=== PATIENT | male | born 1975 | race Caucasian/White ===

== ENCOUNTER 2016-12-18 14:18 | Emergency (ER) | payer OTHER, SELFPAY ==
[~2016-12-18] VITALS: Ht 188 cm; Wt 101.0 kg
[2016-12-18] MEDS ORDERED: ONDANSETRON 2MG/ML, 2ML IVPush ONE ×2 (15:00→17:00)
[2016-12-18] MEDS ORDERED: SODIUM CHLORIDE FLUSH 10ML SYR IVF ONE (15:00)
[2016-12-18] MEDS ORDERED: FAMOTIDINE 20 MG/2 ML IVP ONE (15:00)
[2016-12-18] MEDS ORDERED: SODIUM CHLORIDE 0.9% 1,000ML IVBOLUS ONE ×2 (15:00→17:00)
[2016-12-18 15:08] LABS: HEMATOCRIT 51.5 % (39.2-51.8); HEMOGLOBIN 17.6 g/dL (13.7-18.0); WHITE BLOOD COUNT 8.6 x10^3/uL (3.4-10)
[2016-12-18] MEDS ORDERED: ONDANSETRON 2MG/ML, 2ML ONE ×2 (15:09→16:56)
[2016-12-18] MEDS ORDERED: FAMOTIDINE 20 MG/2 ML ONE (15:09)
[2016-12-18 15:16] LABS: BLOOD UREA NITROGEN 17 mg/dL (7-18)
[2016-12-18] MEDS ORDERED: SERT100T PO (15:32)
[2016-12-18] MEDS ORDERED: HYDROmorphone 1 MG/ML, 1ML ONE (16:55)
[2016-12-18] MEDS ORDERED: HYDROmorphone 1 MG/ML, 1ML IVPush PRN (17:00)
[2016-12-18] MEDS ORDERED: PROMETHAZINE 25 MG/ML, 1ML IM ONE (18:00)
[2016-12-18] MEDS ORDERED: PROMETHAZINE 25 MG/ML, 1ML ONE (18:53)
[2016-12-18 19:42] VITALS: BP 154/92
== END 2016-12-18 19:45 | disposition home or self-care (01) ==
LOC: ED 15:14
DX: K52.9 Noninfective gastroenteritis and colitis, unspecified (principal); E86.0 Dehydration; E86.9 Volume depletion, unspecified
CPT/HCPCS: 36415; 80048; 81001; 82040; 85025; 96361; 96372; 96374; 96375; 96376; 99285; J1170; J2405; J2550; J7030; S0028

== ENCOUNTER 2017-03-29 15:12 | Emergency (ER) | payer OTHER ==
[~2017-03-29] VITALS: Ht 190.5 cm; Wt 98.3 kg
[~2017-03-29 15:12] MED LIST: SERT100T PO
[2017-03-29] MEDS ORDERED: ONDANSETRON 2MG/ML, 2ML ONE (16:05)
[2017-03-29] MEDS ORDERED: HTN (16:21)
[2017-03-29] MEDS ORDERED: SODIUM CHLORIDE 0.9% 1,000 ML IV ONE (16:22)
[2017-03-29] MEDS ORDERED: HYDROmorphone 2 MG/ML, 1ML ONE ×2 (16:25→17:03)
[2017-03-29] MEDS: HYDROmorphone 2 MG/ML, 1ML IVPush PRN ×2 (16:30→17:06)
[2017-03-29] MEDS ORDERED: SODIUM CHLORIDE FLUSH 10ML SYR IVF ONE (16:30)
[2017-03-29] MEDS ORDERED: ONDANSETRON 2MG/ML, 2ML IVPush ONE (16:30)
[2017-03-29] MEDS ORDERED: SODIUM CHLORIDE 0.9% 1,000ML IVBOLUS ONE (16:30)
[2017-03-29 16:46] LABS: BASOPHILS # (AUTO) 0.01 x10^3/uL (0-0.1); BASOPHILS % (AUTO) 0 % (0-1); EOSINOPHILS % (AUTO) 0 % (1-7); LYMPHOCYTES # (AUTO) 0.67 x10^3/uL (1-3.4); LYMPHOCYTES % (AUTO) 8 % (22-44); MD NO; MEAN CORPUSCULAR HEMOGLOBIN 30.5 pg (27.5-34.5); MEAN CORPUSCULAR HGB CONC 33.8 g/dL (33.2-36.2); MEAN CORPUSCULAR VOLUME 90.2 fL (81-97); MEAN PLATELET VOLUME 8.5 fL (7.4-10.4); MONOCYTES # (AUTO) 0.15 x10^3/uL (0.2-0.8); MONOCYTES % (AUTO) 2 % (2-9); NEUTROPHILS # (AUTO) 7.58 x10^3/uL (1.8-6.8); NEUTROPHILS % (AUTO) 90 % (42-75); PLATELET COUNT 167 x10^3/uL (130-400); RED BLOOD COUNT 5.36 x10^6/uL (4.38-5.82); RED CELL DISTRIBUTION WIDTH 12.7 % (9.4-14.8)
[2017-03-29 16:52] LABS: ALANINE AMINOTRANSFERASE 48 U/L (12-78); ALBUMIN 4.6 g/dL (3.4-5.0); ANION GAP 12 mmol/L (5-15); CALCIUM 9.2 mg/dL (8.5-10.1); CHLORIDE 108 mmol/L (98-107); CREATININE 1.17 mg/dL (0.7-1.3)
[2017-03-29 16:55] LABS: ALKALINE PHOSPHATASE 46 U/L (45-117); BILIRUBIN,TOTAL 0.8 mg/dL (0.2-1.0); TOTAL PROTEIN 8.4 g/dL (6.4-8.2)
[2017-03-29 18:01] LABS: CULTURE INDICATED? NO; MICROSCOPIC NOT IND
[2017-03-29] MEDS ORDERED: PROMETHAZINE 25 MG/ML, 1ML ONE (18:32)
[2017-03-29 18:57] VITALS: BP 140/80
[2017-03-29] MEDS ORDERED: PROMETHAZINE 25 MG/ML, 1ML IM ONE (19:00)
== END 2017-03-29 19:16 | disposition home or self-care (01) ==
LOC: ED 16:42
DX: K52.9 Noninfective gastroenteritis and colitis, unspecified (principal); E86.0 Dehydration; E86.9 Volume depletion, unspecified
CPT/HCPCS: 36415; 80053; 81003; 83690; 85025; 96361; 96372; 96374; 96375; 99284; J1170; J2405; J2550; J7030

== ENCOUNTER 2017-08-03 16:54 | Emergency (ER) | payer SELFPAY ==
[~2017-08-03] VITALS: Ht 190.5 cm; Wt 93.0 kg
[~2017-08-03 16:54] MED LIST changes: +HTN
[2017-08-03] MEDS ORDERED: ONDANSETRON ODT 4 MG PO ONE ×2 (18:00→19:00)
[2017-08-03] MEDS ORDERED: SODIUM CHLORIDE 0.9% 1,000ML IVBOLUS ONE (18:00)
[2017-08-03] MEDS ORDERED: FAMOTIDINE 20 MG/2 ML IVP ONE (18:00)
[2017-08-03] MEDS ORDERED: SODIUM CHLORIDE FLUSH 10ML SYR IVF ONE (18:00)
[2017-08-03] MEDS ORDERED: MORPHINE SULFATE 4 MG/ML, 1ML ONE ×2 (18:09→18:41)
[2017-08-03] MEDS ORDERED: ONDANSETRON ODT 4 MG ONE ×2 (18:09→18:41)
[2017-08-03] MEDS: MORPHINE SULFATE 4 MG/ML, 1ML IVPush PRN ×2 (18:15→18:43)
[2017-08-03 18:19] LABS: BASOPHILS % (AUTO) 0 % (0-1); EOSINOPHILS % (AUTO) 0 % (1-7); LYMPHOCYTES # (AUTO) 0.66 x10^3/uL (1-3.4); LYMPHOCYTES % (AUTO) 7 % (22-44); MD NO; MEAN CORPUSCULAR HEMOGLOBIN 30.9 pg (27.5-34.5); MEAN CORPUSCULAR HGB CONC 33.9 g/dL (33.2-36.2); MEAN CORPUSCULAR VOLUME 91.3 fL (81-97); MEAN PLATELET VOLUME 8.2 fL (7.4-10.4); MONOCYTES # (AUTO) 0.26 x10^3/uL (0.2-0.8); MONOCYTES % (AUTO) 3 % (2-9); NEUTROPHILS # (AUTO) 9.01 x10^3/uL (1.8-6.8); NEUTROPHILS % (AUTO) 91 % (42-75); PLATELET COUNT 176 x10^3/uL (130-400); RED BLOOD COUNT 5.22 x10^6/uL (4.38-5.82); RED CELL DISTRIBUTION WIDTH 12.7 % (9.4-14.8)
[2017-08-03 18:22] LABS: ALANINE AMINOTRANSFERASE 53 U/L (12-78); ALBUMIN 4.8 g/dL (3.4-5.0); ANION GAP 9 mmol/L (5-15); CALCIUM 9.5 mg/dL (8.5-10.1); CHLORIDE 105 mmol/L (98-107); CREATININE 1.17 mg/dL (0.7-1.3)
[2017-08-03 18:24] LABS: ALKALINE PHOSPHATASE 47 U/L (45-117); BILIRUBIN,TOTAL 0.9 mg/dL (0.2-1.0); TOTAL PROTEIN 8.6 g/dL (6.4-8.2)
[2017-08-03] MEDS ORDERED: ANXIETY MED (19:26)
[2017-08-03] MEDS ORDERED: ANTIDEPRESSANT (19:26)
[2017-08-03] MEDS ORDERED: PROMETHAZINE 25 MG/ML, 1ML IM ONE (19:30)
[2017-08-03] MEDS ORDERED: PROMETHAZINE 25 MG/ML, 1ML ONE (19:37)
[2017-08-03 21:13] VITALS: BP 144/81
== END 2017-08-03 21:18 | disposition home or self-care (01) ==
LOC: ED 18:50
DX: R10.84 Generalized abdominal pain (principal); F12.10 Cannabis abuse, uncomplicated; Z88.5 Allergy status to narcotic agent
CPT/HCPCS: 36415; 80053; 83690; 85025; 96361; 96372; 96374; 96375; 99284; J2550; J7030; Q0162; S0028

== ENCOUNTER 2018-02-18 17:40 | Emergency (ER) | payer SELFPAY ==
[~2018-02-18] VITALS: Ht 190.5 cm; Wt 96.1 kg
[~2018-02-18 17:40] MED LIST changes: +ANTIDEPRESSANT; +ANXIETY MED
[2018-02-18] MEDS ORDERED: ACETAMINOPHEN 500 MG TABLET ONE (18:38)
[2018-02-18] MEDS ORDERED: ONDANSETRON ODT 4 MG ONE (18:38)
[2018-02-18 18:57] LABS: BASOPHILS # (AUTO) 0.01 x10^3/uL (0-0.1); BASOPHILS % (AUTO) 0 % (0-1); EOSINOPHILS % (AUTO) 0 % (1-7); LYMPHOCYTES # (AUTO) 0.52 x10^3/uL (1-3.4); LYMPHOCYTES % (AUTO) 5 % (22-44); MD NO; MEAN CORPUSCULAR HEMOGLOBIN 31.2 pg (27.5-34.5); MEAN CORPUSCULAR HGB CONC 33.9 g/dL (33.2-36.2); MEAN CORPUSCULAR VOLUME 91.9 fL (81-97); MEAN PLATELET VOLUME 8.1 fL (7.4-10.4); MONOCYTES # (AUTO) 0.15 x10^3/uL (0.2-0.8); MONOCYTES % (AUTO) 2 % (2-9); NEUTROPHILS # (AUTO) 9.08 x10^3/uL (1.8-6.8); NEUTROPHILS % (AUTO) 93 % (42-75); PLATELET COUNT 203 x10^3/uL (130-400); RED BLOOD COUNT 5.27 x10^6/uL (4.38-5.82); RED CELL DISTRIBUTION WIDTH 13.5 % (9.4-14.8)
[2018-02-18] MEDS ORDERED: ONDANSETRON ODT 4 MG PO ONE (19:00)
[2018-02-18] MEDS ORDERED: ACETAMINOPHEN 500 MG TABLET PO ONE (19:00)
[2018-02-18 19:09] LABS: ALANINE AMINOTRANSFERASE 40 U/L (12-78); ALBUMIN 4.7 g/dL (3.4-5.0); ANION GAP 12 mmol/L (5-15); CALCIUM 9.4 mg/dL (8.5-10.1); CHLORIDE 107 mmol/L (98-107); CREATININE 1.21 mg/dL (0.7-1.3)
[2018-02-18 19:11] LABS: ALKALINE PHOSPHATASE 37 U/L (45-117); BILIRUBIN,TOTAL 0.6 mg/dL (0.2-1.0); TOTAL PROTEIN 8.3 g/dL (6.4-8.2)
[2018-02-18] MEDS ORDERED: SODIUM CHLORIDE FLUSH 10ML SYR IVF ONE (20:30)
[2018-02-18] MEDS ORDERED: SODIUM CHLORIDE 0.9% 1,000ML IVBOLUS ONE ×2 (20:30→21:30)
[2018-02-18] MEDS ORDERED: MORPHINE SULFATE 4 MG/ML, 1ML IVPush PRN (20:30)
[2018-02-18] MEDS ORDERED: MORPHINE SULFATE 4 MG/ML, 1ML ONE (20:31)
[2018-02-18 20:51] LABS: MICROSCOPIC NOT IND
[2018-02-18 20:56] LABS: CULTURE INDICATED? NO
[2018-02-18] MEDS ORDERED: PROMETHAZINE 25 MG/ML, 1ML ONE (21:23)
[2018-02-18 21:26] VITALS: BP 156/92
[2018-02-18] MEDS ORDERED: PROMETHAZINE 25 MG/ML, 1ML IM ONE (21:30)
== END 2018-02-18 22:29 | disposition home or self-care (01) ==
LOC: ED 20:56
DX: R19.7 Diarrhea, unspecified (principal); R11.2 Nausea with vomiting, unspecified; M79.18 Myalgia, other site; F12.10 Cannabis abuse, uncomplicated
CPT/HCPCS: 36415; 80053; 81003; 83690; 85025; 87081; 87880; 96361; 96372; 96374; 99283; J2550; J7030; Q0162

== ENCOUNTER 2018-08-29 06:30 | Inpatient (IN) | payer OTHER ==
[~2018-08-29] VITALS: Ht 190.5 cm; Wt 81.3 kg
--- NOTE | 2018-08-29 06:55 | NUR ---
PT REPORTS N/V, DIARRHEA, SOB SINCE 2 AM.
[2018-08-29] MEDS ORDERED: ONDANSETRON 2MG/ML, 2ML ONE (07:00)
[2018-08-29] MEDS ORDERED: LORazepam 2 MG/ML, 1ML IVPush ONE (07:00)
[2018-08-29] MEDS ORDERED: LORazepam 2 MG/ML, 1ML ONE (07:00)
[2018-08-29] MEDS ORDERED: ONDANSETRON 2MG/ML, 2ML IVPush ONE (07:00)
[2018-08-29] MEDS ORDERED: ONDANSETRON ODT 4 MG PO ONE (07:00)
[2018-08-29] MEDS ORDERED: SODIUM CHLORIDE FLUSH 10ML SYR IVF ONE ×2 (07:00→08:30)
[2018-08-29 07:08] LABS: BASOPHILS # (AUTO) 0.02 x10^3/uL (0-0.1); BASOPHILS % (AUTO) 0 % (0-1); EOSINOPHILS # (AUTO) 0.12 x10^3/uL (0-0.4); EOSINOPHILS % (AUTO) 2 % (1-7); LYMPHOCYTES # (AUTO) 0.82 x10^3/uL (1-3.4); LYMPHOCYTES % (AUTO) 11 % (22-44); MD NO; MEAN CORPUSCULAR HEMOGLOBIN 30.1 pg (27.5-34.5); MEAN CORPUSCULAR HGB CONC 33.1 g/dL (33.2-36.2); MEAN PLATELET VOLUME 7.9 fL (7.4-10.4); MONOCYTES # (AUTO) 0.41 x10^3/uL (0.2-0.8); MONOCYTES % (AUTO) 5 % (2-9); NEUTROPHILS # (AUTO) 6.26 x10^3/uL (1.8-6.8); NEUTROPHILS % (AUTO) 82 % (42-75); PLATELET COUNT 167 x10^3/uL (130-400); RED BLOOD COUNT 5.38 x10^6/uL (4.38-5.82); RED CELL DISTRIBUTION WIDTH 13.7 % (9.4-14.8)
[2018-08-29 07:21] LABS: ALANINE AMINOTRANSFERASE 49 U/L (12-78); ALBUMIN 4.6 g/dL (3.4-5.0); ANION GAP 8 mmol/L (5-15); CALCIUM 9.5 mg/dL (8.5-10.1); CHLORIDE 109 mmol/L (98-107); CREATININE 1.21 mg/dL (0.7-1.3)
[2018-08-29 07:24] LABS: ALKALINE PHOSPHATASE 39 U/L (45-117); BILIRUBIN,TOTAL 0.8 mg/dL (0.2-1.0)
[2018-08-29] MEDS ORDERED: [UNRECOGNIZED DRUG - REMARK] (07:24)
[2018-08-29] MEDS ORDERED: FLUO40CA9 PO (07:24)
--- NOTE | 2018-08-29 07:52 | NUR ---
PT TO XRAY
[2018-08-29] MEDS ORDERED: NITROGLYCERIN OINT 2%, 1GM TP ONE ×2 (08:29→08:30)
[2018-08-29] MEDS ORDERED: SODIUM CHLORIDE 0.9% 1,000ML IVBOLUS ONE (08:30)
--- NOTE | 2018-08-29 08:42 | NUR ---
PT ANXIOUS, REPORTS NAUSEA IS NOT BETTER AT ALL SINCE MEDICATED. ER PA NOTIFIED. IVF STARTED. BP 178/108 BEFORE NITRO.
[2018-08-29] MEDS ORDERED: PROMETHAZINE 25 MG/ML, 1ML IM ONE (09:00)
[2018-08-29] MEDS ORDERED: PROMETHAZINE 25 MG/ML, 1ML ONE (09:11)
--- NOTE | 2018-08-29 09:27 | NUR ---
PT NAUSEA STILL NOT BETTER. MEDICATED PER EMAR. WILL CONTINUE TO REASSESS.
[2018-08-29] MEDS ORDERED: HALOPERIDOL 5 MG/ML IVPush ONE (09:30)
[2018-08-29 09:41] LABS: MICROSCOPIC AUTO
[2018-08-29 09:46] LABS: CULTURE INDICATED? NO
[2018-08-29] MEDS ORDERED: KETOROLAC 30 MG/1 ML IVPush ONE (10:00)
[2018-08-29] MEDS ORDERED: KETOROLAC 30 MG/1 ML ONE (10:01)
--- NOTE | 2018-08-29 10:26 | NUR ---
PT REPORTS LESS NAUSEA AND NO VOMITTING. PT REPORTS PAIN HAS IMPROVED TO 10/10 TO 9/10. PT STATES HE IS STILL UNABLE TO PROVIDE A STOOL SAMPLE.
--- NOTE | 2018-08-29 11:08 | NUR ---
PT STATES HE IS STILL VERY UNCOMFORTABLE AND THE NAUSEA AND VOMITTING PERSIST DESPITE THE MEDICATIONS. PT PALE AND DIAPHORETIC. TO BE ADMITTED.
--- NOTE | 2018-08-29 11:10 | NUR ---
ER PA IN TO PERFORM RECTAL EXAM SINCE PT HAS NOT BEEN ABLE TO PROVIDE STOOL SAMPLE.
--- NOTE | 2018-08-29 11:32 | NUR ---
REPORT GIVEN TO JOSHUA DUVAL ON 3NE
[2018-08-29 11:54] VITALS: BP 170/98
[2018-08-29] MEDS: D5%-0.45% NACL 1,000 ML IV SCH (13:27)
[2018-08-29] MEDS ORDERED: ONDANSETRON 2MG/ML, 2ML IVPush PRN (13:30)
[2018-08-29] MEDS ORDERED: POLYETHYLENE GLYCOL 17 GM PACKET PO PRN (13:30)
[2018-08-29] MEDS ORDERED: LABETALOL 5MG/ML, 20ML IVPush PRN (13:30)
[2018-08-29 13:53] VITALS: BP 173/110
[2018-08-29] MEDS: ONDANSETRON ODT 4 MG PO PRN ×2 (13:55→18:05)
[2018-08-29] MEDS: LABETALOL 5 MG/ML SYRINGE IVPush PRN ×2 (14:12→22:35)
[2018-08-29 14:21] LABS: FREE T4 (FREE THYROXINE) 1.06 ng/dL (0.76-1.46)
[2018-08-29 15:12] VITALS: BP 161/94
[2018-08-29] MEDS: ACETAMINOPHEN 325 MG TABLET PO PRN ×2 (15:52→21:15)
[2018-08-29 20:00] VITALS: BP 189/115
[2018-08-30] MEDS: ONDANSETRON ODT 4 MG PO PRN
[2018-08-30 00:07] VITALS: BP 164/90
[2018-08-30 03:40] VITALS: BP 184/97
[2018-08-30] MEDS: LABETALOL 5 MG/ML SYRINGE IVPush PRN (04:28)
[2018-08-30 05:35] VITALS: BP 167/92
[2018-08-30 05:42] LABS: BASOPHILS # (AUTO) 0.02 x10^3/uL (0-0.1); BASOPHILS % (AUTO) 0 % (0-1); EOSINOPHILS # (AUTO) 0.01 x10^3/uL (0-0.4); EOSINOPHILS % (AUTO) 0 % (1-7); LYMPHOCYTES # (AUTO) 0.85 x10^3/uL (1-3.4); LYMPHOCYTES % (AUTO) 9 % (22-44); MD NO; MEAN CORPUSCULAR HEMOGLOBIN 30.5 pg (27.5-34.5); MEAN CORPUSCULAR HGB CONC 33.1 g/dL (33.2-36.2); MEAN CORPUSCULAR VOLUME 92.1 fL (81-97); MEAN PLATELET VOLUME 8.1 fL (7.4-10.4); MONOCYTES # (AUTO) 0.56 x10^3/uL (0.2-0.8); MONOCYTES % (AUTO) 6 % (2-9); NEUTROPHILS # (AUTO) 7.75 x10^3/uL (1.8-6.8); NEUTROPHILS % (AUTO) 84 % (42-75); PLATELET COUNT 192 x10^3/uL (130-400); RED BLOOD COUNT 5.37 x10^6/uL (4.38-5.82); RED CELL DISTRIBUTION WIDTH 13.7 % (9.4-14.8)
[2018-08-30 05:53] LABS: ALANINE AMINOTRANSFERASE 42 U/L (12-78); ALBUMIN 4.2 g/dL (3.4-5.0); ANION GAP 7 mmol/L (5-15); CALCIUM 8.9 mg/dL (8.5-10.1); CHLORIDE 104 mmol/L (98-107)
[2018-08-30 06:04] LABS: ALKALINE PHOSPHATASE 39 U/L (45-117); BILIRUBIN,TOTAL 0.6 mg/dL (0.2-1.0); CREATININE 0.85 mg/dL (0.7-1.3); TOTAL PROTEIN 7.5 g/dL (6.4-8.2)
[2018-08-30] MEDS: D5%-0.45% NACL 1,000 ML IV SCH ×2 (07:30)
[2018-08-30 08:43] VITALS: BP 156/90
[2018-08-30] MEDS ORDERED: FLUOXETINE HCL 20 MG CAPSULE PO SCH (09:00)
[2018-08-30] MEDS ORDERED: AMLODIPINE 5 MG TABLET PO SCH (09:00)
[2018-08-30] MEDS ORDERED: SENNA/DOCUSATE TABLET PO SCH (09:00)
== END 2018-08-30 11:49 | disposition left against medical advice (07) | DRG 392 ==
LOC: ED 09:59 → EDIP 11:01 → 3NE 11:39
PROVIDERS: ADMIT Internal Medicine; ATTEND Internal Medicine
DX: R11.2 Nausea with vomiting, unspecified (principal); E86.0 Dehydration; F32.9 Major depressive disorder, single episode, unspecified; F41.1 Generalized anxiety disorder; I10 Essential (primary) hypertension; Z79.899 Other long term (current) drug therapy; F41.0 Panic disorder [episodic paroxysmal anxiety]; Z88.6 Allergy status to analgesic agent; Z53.21 Procedure and treatment not carried out due to patient leaving prior to being seen by health care provider
CPT/HCPCS: 36415; 74021; 80053; 81001; 83735; 84100; 84439; 84443; 85025; 96361; 96372; 96374; 96375; G0378; J1885; J2405; J2550; Q0162; J2060; J7030

== ENCOUNTER 2018-10-22 17:36 | Emergency (ER) | payer OTHER ==
[~2018-10-22] VITALS: Ht 190.5 cm; Wt 92.7 kg
[2018-10-22 20:06] VITALS: BP 179/108
== END 2018-10-22 20:10 | disposition home or self-care (01) ==
LOC: ED 18:34
DX: K52.9 Noninfective gastroenteritis and colitis, unspecified (principal); I10 Essential (primary) hypertension
CPT/HCPCS: 36415; 80053; 83690; 85025; 93005; 96361; 96372; 96374; 99284; J2270; J2550; J7030

== ENCOUNTER 2019-02-12 17:44 | Emergency (ER) | payer OTHER ==
[~2019-02-12] VITALS: Ht 190.5 cm; Wt 99.7 kg
[~2019-02-12 17:44] MED LIST changes: +FLUO40CA9 PO; +HYDR50TA13 PO; +[UNRECOGNIZED DRUG - REMARK]
[2019-02-12 18:21] LABS: BASOPHILS # (AUTO) 0.01 x10^3/uL (0-0.1); BASOPHILS % (AUTO) 0 % (0-1); EOSINOPHILS # (AUTO) 0.01 x10^3/uL (0-0.4); EOSINOPHILS % (AUTO) 0 % (1-7); LYMPHOCYTES # (AUTO) 0.58 x10^3/uL (1-3.4); LYMPHOCYTES % (AUTO) 5 % (22-44); MD NO; MEAN CORPUSCULAR HEMOGLOBIN 30.3 pg (27.5-34.5); MEAN CORPUSCULAR HGB CONC 33.2 g/dL (33.2-36.2); MEAN CORPUSCULAR VOLUME 91.4 fL (81-97); MEAN PLATELET VOLUME 7.5 fL (7.4-10.4); MONOCYTES # (AUTO) 0.21 x10^3/uL (0.2-0.8); MONOCYTES % (AUTO) 2 % (2-9); NEUTROPHILS # (AUTO) 10.33 x10^3/uL (1.8-6.8); NEUTROPHILS % (AUTO) 93 % (42-75); PLATELET COUNT 191 x10^3/uL (130-400); RED BLOOD COUNT 5.39 x10^6/uL (4.38-5.82); RED CELL DISTRIBUTION WIDTH 13.2 % (9.4-14.8)
[2019-02-12] MEDS ORDERED: ONDANSETRON 2MG/ML, 2ML ONE (18:25)
[2019-02-12] MEDS ORDERED: MORPHINE SULFATE 4 MG/ML, 1ML ONE (18:25)
[2019-02-12] MEDS ORDERED: PROMETHAZINE 25 MG/ML, 1ML ONE (18:25)
[2019-02-12] MEDS ORDERED: PROMETHAZINE 25 MG/ML, 1ML IM ONE (18:30)
[2019-02-12] MEDS ORDERED: MORPHINE SULFATE 4 MG/ML, 1ML IVPush PRN (18:30)
[2019-02-12] MEDS ORDERED: SODIUM CHLORIDE FLUSH 10ML SYR IVF ONE (18:30)
[2019-02-12] MEDS ORDERED: ONDANSETRON 2MG/ML, 2ML IVPush ONE (18:30)
[2019-02-12] MEDS ORDERED: SODIUM CHLORIDE 0.9% 1,000ML IVBOLUS ONE (18:30)
[2019-02-12 18:32] LABS: ALANINE AMINOTRANSFERASE 47 U/L (12-78); ALBUMIN 4.5 g/dL (3.4-5.0); ANION GAP 11 mmol/L (5-15); CALCIUM 9.3 mg/dL (8.5-10.1); CHLORIDE 103 mmol/L (98-107)
[2019-02-12 18:35] LABS: ALKALINE PHOSPHATASE 47 U/L (45-117); BILIRUBIN,TOTAL 0.6 mg/dL (0.2-1.0); CREATININE 1.37 mg/dL (0.7-1.3); TOTAL PROTEIN 8.4 g/dL (6.4-8.2)
--- NOTE | 2019-02-12 18:45 | NUR ---
PT REPORTS N/V ALL DAY HAS BEEN BENT OVER TUB ALL DAY AND NOW HIS LEGS HURT ALSO
[2019-02-12 18:58] VITALS: BP 179/103
--- NOTE | 2019-02-12 19:01 | NUR ---
UA COLLECTED AND SENT TO LAB. PT RESTING ON [facility], [place].
[2019-02-12 19:11] LABS: MICROSCOPIC AUTO
[2019-02-12 19:13] LABS: CULTURE INDICATED? NO
--- NOTE | 2019-02-12 19:16 | NUR ---
ALL RESULTS ARE BACK AT THIS TIME. CHART UP FOR RECHECK.
== END 2019-02-12 19:49 | disposition home or self-care (01) ==
LOC: ED 19:43
DX: K52.9 Noninfective gastroenteritis and colitis, unspecified (principal); I10 Essential (primary) hypertension; E86.0 Dehydration
CPT/HCPCS: 36415; 80053; 81001; 83690; 85025; 96372; 96374; 96375; 99283; J2270; J2405; J2550; J7030

== ENCOUNTER 2019-09-21 16:28 | Emergency (ER) | payer OTHER ==
[~2019-09-21] VITALS: Ht 190.5 cm; Wt 102.6 kg
[~2019-09-21 16:28] MED LIST changes: -HYDR50TA13 PO; +HYDR50TA99 PO
--- NOTE | 2019-09-21 16:56 | NUR ---
"I'M VOMITING AND I CAN'T KEEP ANYTHING DOWN FOR A DAY AND A HALF.". DENIES DIARRHEA. PT IN BED WITH CONT SPO2, BP Q 30 MIN, SIDE RAILS UP X2, CALL LIGHT IN REACH. PT HAS N/V
[2019-09-21] MEDS ORDERED: PROMETHAZINE 25 MG/ML, 1ML IM ONE (17:00)
[2019-09-21] MEDS ORDERED: FAMOTIDINE 20 MG/2 ML IV ONE (17:00)
[2019-09-21] MEDS ORDERED: HYDROmorphone 2 MG/ML, 1ML IVPush PRN (17:00)
[2019-09-21] MEDS ORDERED: SODIUM CHLORIDE FLUSH 10ML SYR IVF ONE (17:00)
[2019-09-21] MEDS ORDERED: SODIUM CHLORIDE 0.9% 1,000ML IVBOLUS ONE (17:00)
[2019-09-21] MEDS ORDERED: PROMETHAZINE 25 MG/ML, 1ML ONE (17:01)
[2019-09-21] MEDS ORDERED: HYDROmorphone 1 MG/ML, 1ML INJ ONE (17:01)
[2019-09-21] MEDS ORDERED: FAMOTIDINE 20 MG/2 ML ONE (17:01)
[2019-09-21 17:05] LABS: BASOPHILS # (AUTO) 0.03 x10^3/uL (0-0.1); BASOPHILS % (AUTO) 0 % (0-1); EOSINOPHILS % (AUTO) 0 % (1-7); LYMPHOCYTES # (AUTO) 0.82 x10^3/uL (1-3.4); LYMPHOCYTES % (AUTO) 7 % (22-44); MD NO; MEAN CORPUSCULAR HEMOGLOBIN 30.8 pg (27.5-34.5); MEAN CORPUSCULAR HGB CONC 33.3 g/dL (33.2-36.2); MEAN CORPUSCULAR VOLUME 92.3 fL (81-97); MONOCYTES # (AUTO) 0.29 x10^3/uL (0.2-0.8); MONOCYTES % (AUTO) 2 % (2-9); NEUTROPHILS # (AUTO) 11.16 x10^3/uL (1.8-6.8); NEUTROPHILS % (AUTO) 91 % (42-75); PLATELET COUNT 191 x10^3/uL (130-400); RED BLOOD COUNT 5.41 x10^6/uL (4.38-5.82); RED CELL DISTRIBUTION WIDTH 13.8 % (9.4-14.8)
[2019-09-21 17:14] LABS: ALANINE AMINOTRANSFERASE 51 U/L (12-78); ALBUMIN 4.7 g/dL (3.4-5.0); ANION GAP 11 mmol/L (5-15); CALCIUM 9.3 mg/dL (8.5-10.1); CHLORIDE 105 mmol/L (98-107); CREATININE 1.38 mg/dL (0.7-1.3)
[2019-09-21 17:17] LABS: ALKALINE PHOSPHATASE 45 U/L (45-117); BILIRUBIN,TOTAL 0.7 mg/dL (0.2-1.0); TOTAL PROTEIN 8.8 g/dL (6.4-8.2)
--- NOTE | 2019-09-21 17:32 | NUR ---
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 NO MORE N/V. NOTIFIED
[2019-09-21 17:40] LABS: ACETONE, SERUM Negative (Negative)
[2019-09-21] MEDS ORDERED: MAALOX/HYOSCYAMINE/LIDOCAINE 45 ML BTL ONE (17:59)
[2019-09-21] MEDS ORDERED: MAALOX/HYOSCYAMINE/LIDOCAINE 45 ML BTL PO ONE (18:00)
[2019-09-21 18:20] VITALS: BP 124/74
== END 2019-09-21 18:22 | disposition home or self-care (01) ==
LOC: ED 17:35
DX: R11.2 Nausea with vomiting, unspecified (principal); E86.0 Dehydration; R10.84 Generalized abdominal pain; I10 Essential (primary) hypertension
CPT/HCPCS: 36415; 80053; 82010; 83690; 83735; 85025; 96361; 96372; 96374; 96375; 99284; J1170; J2550; J3490; J7030

== ENCOUNTER 2019-09-23 06:20 | Inpatient (IN) | payer OTHER ==
[~2019-09-23] VITALS: Ht 188 cm; Wt 107.2 kg
[2019-09-23] VITALS (12 sets, daily range): BP systolic 116–209; BP diastolic 74–126
--- NOTE | 2019-09-23 06:47 | NUR ---
Report to Toya LEWIS to assume care
[2019-09-23] MEDS ORDERED: SODIUM CHLORIDE 0.9% 1,000ML IVBOLUS ONE (07:00)
[2019-09-23] MEDS ORDERED: PROMETHAZINE 25 MG/ML, 1ML IM ONE (07:00)
[2019-09-23] MEDS ORDERED: SODIUM CHLORIDE FLUSH 10ML SYR IVF ONE (07:00)
[2019-09-23] MEDS ORDERED: MORPHINE SULFATE 4 MG/ML, 1ML IVPush PRN (07:00)
[2019-09-23] MEDS ORDERED: MORPHINE SULFATE 4 MG/ML, 1ML ONE (07:03)
[2019-09-23] MEDS ORDERED: PROMETHAZINE 25 MG/ML, 1ML ONE (07:03)
[2019-09-23 07:14] LABS: BASOPHILS % (AUTO) 0 % (0-1); EOSINOPHILS # (AUTO) 0.16 x10^3/uL (0-0.4); EOSINOPHILS % (AUTO) 2 % (1-7); LYMPHOCYTES # (AUTO) 0.83 x10^3/uL (1-3.4); LYMPHOCYTES % (AUTO) 11 % (22-44); MD NO; MEAN CORPUSCULAR HEMOGLOBIN 30.7 pg (27.5-34.5); MEAN CORPUSCULAR HGB CONC 33.4 g/dL (33.2-36.2); MEAN PLATELET VOLUME 7.6 fL (7.4-10.4); MONOCYTES # (AUTO) 0.33 x10^3/uL (0.2-0.8); MONOCYTES % (AUTO) 4 % (2-9); NEUTROPHILS # (AUTO) 6.42 x10^3/uL (1.8-6.8); NEUTROPHILS % (AUTO) 83 % (42-75); PLATELET COUNT 173 x10^3/uL (130-400); RED BLOOD COUNT 5.28 x10^6/uL (4.38-5.82); RED CELL DISTRIBUTION WIDTH 13.1 % (9.4-14.8)
[2019-09-23 07:25] LABS: ALANINE AMINOTRANSFERASE 47 U/L (12-78); ALBUMIN 4.1 g/dL (3.4-5.0); ANION GAP 7 mmol/L (5-15); CALCIUM 8.6 mg/dL (8.5-10.1); CHLORIDE 112 mmol/L (98-107); CREATININE 1.26 mg/dL (0.7-1.3)
[2019-09-23 07:29] LABS: ALKALINE PHOSPHATASE 37 U/L (45-117); BILIRUBIN,TOTAL 0.7 mg/dL (0.2-1.0); TOTAL PROTEIN 7.4 g/dL (6.4-8.2); TROPONIN I < 0.015 ng/mL (0.000-0.045)
--- NOTE | 2019-09-23 07:34 | NUR ---
PT to imaging
[2019-09-23] MEDS ORDERED: LORazepam 2 MG/ML, 1ML IVPush ONE (08:00)
[2019-09-23] MEDS ORDERED: LORazepam 2 MG/ML, 1ML ONE (08:14)
--- NOTE | 2019-09-23 08:17 | NUR ---
pt to ct
[2019-09-23 08:27] LABS: MICROSCOPIC NOT IND
[2019-09-23] MEDS ORDERED: OMNIPAQUE 350 MG/ML, 100ML BOTTLE ONE (08:46)
--- NOTE | 2019-09-23 08:52 | NUR ---
pt back from imaging, resting in bed.
[2019-09-23] MEDS ORDERED: hydrALAzine 20 MG/ML, 1ML ONE (09:15)
--- NOTE | 2019-09-23 09:15 | NUR ---
ERMD AT BEDSIDE TO DISCUSS POC
[2019-09-23] MEDS ORDERED: hydrALAzine 20 MG/ML, 1ML IV ONE (09:30)
[2019-09-23] MEDS ORDERED: BENZOCAINE 20% SPRAY 0.5ML ONE (09:51)
--- NOTE | 2019-09-23 09:59 | NUR ---
PT PULLED OUT/DCD NG TUBE, NOW REFUSIGN REPLACEMENT.
[2019-09-23] MEDS ORDERED: PANTOPRAZOLE 80 MG in SODIUM CHLORIDE 0.9% 50 ML IV ONE (10:00)
[2019-09-23] MEDS ORDERED: PANTOPRAZOLE 80 MG in SODIUM CHLORIDE 0.9% 100 ML IV SCH (10:00)
--- NOTE | 2019-09-23 10:00 | NUR ---
REPORT CALLED TO JOVANNA LEWIS
[2019-09-23] MEDS ORDERED: DOCUSATE 100 MG CAPSULE PO PRN (11:30)
[2019-09-23] MEDS ORDERED: POLYETHYLENE GLYCOL 17 GM PACKET PO PRN (11:30)
[2019-09-23] MEDS ORDERED: PROMETHAZINE 25 MG/ML, 1ML IM PRN (11:30)
[2019-09-23] MEDS ORDERED: ONDANSETRON ODT 4 MG PO PRN (11:30)
[2019-09-23] MEDS ORDERED: LABETALOL 5MG/ML, 20ML IVPush PRN (11:30)
[2019-09-23] MEDS ORDERED: HALOPERIDOL 5 MG/ML IVPush PRN (11:30)
[2019-09-23] MEDS ORDERED: ACETAMINOPHEN 325 MG TABLET PO PRN (11:30)
[2019-09-23] MEDS ORDERED: ONDANSETRON 2MG/ML, 2ML IVPush PRN (11:30)
[2019-09-23] MEDS ORDERED: FAMOTIDINE 20 MG/2 ML IVPush SCH (11:30)
[2019-09-23] MEDS ORDERED: BISACODYL 10 MG SUPP PR PRN (11:30)
[2019-09-23] MEDS ORDERED: hydrALAzine 20 MG/ML, 1ML IVPush PRN ×2 (11:30→15:30)
[2019-09-23] MEDS: METOPROLOL TARTRATE 25 MG TAB PO SCH ×2 (11:59→18:16)
[2019-09-23] MEDS ORDERED: ENOXAPARIN 40 MG/0.4 ML SQ SCH (12:00)
[2019-09-23] MEDS: KETOROLAC 30 MG/1 ML IV PRN ×2 (12:16→19:49)
[2019-09-23] MEDS: NS + 20MEQ KCL 1,000 ML IV SCH (12:32)
[2019-09-23] MEDS: ENALAPRILAT 1.25 MG/ML, 2ML IVPush PRN ×2 (12:35→13:11)
[2019-09-23] MEDS ORDERED: NITROGLYCERIN OINT 2%, 1GM TP PRN (15:30)
[2019-09-23 15:57] LABS: AMPHETAMINE SCREEN, URINE Negative (Negative); BARBITURATE SCREEN, URINE Negative (Negative); BENZODIAZEPINE SCREEN, URINE Negative (Negative); CANNABINOID SCREEN, URINE Positive (Negative); COCAINE SCREEN, URINE Negative (Negative); METHADONE SCREEN, URINE Negative (Negative); OPIATE SCREEN, URINE Positive (Negative)
[2019-09-23] MEDS: LISINOPRIL 20 MG TABLET PO SCH ×2 (16:13→19:48)
[2019-09-24 00:58] VITALS: BP 127/74
[2019-09-24] MEDS: NS + 20MEQ KCL 1,000 ML IV SCH (02:43)
[2019-09-24 05:00] LABS: BASOPHILS # (AUTO) 0.03 x10^3/uL (0-0.1); BASOPHILS % (AUTO) 0 % (0-1); EOSINOPHILS % (AUTO) 1 % (1-7); LYMPHOCYTES # (AUTO) 1.27 x10^3/uL (1-3.4); LYMPHOCYTES % (AUTO) 14 % (22-44); MD NO; MEAN CORPUSCULAR HEMOGLOBIN 30.7 pg (27.5-34.5); MEAN CORPUSCULAR HGB CONC 32.9 g/dL (33.2-36.2); MEAN CORPUSCULAR VOLUME 93.5 fL (81-97); MEAN PLATELET VOLUME 8.2 fL (7.4-10.4); MONOCYTES # (AUTO) 0.84 x10^3/uL (0.2-0.8); MONOCYTES % (AUTO) 9 % (2-9); NEUTROPHILS # (AUTO) 7.13 x10^3/uL (1.8-6.8); NEUTROPHILS % (AUTO) 76 % (42-75); PLATELET COUNT 169 x10^3/uL (130-400); RED BLOOD COUNT 5.09 x10^6/uL (4.38-5.82); RED CELL DISTRIBUTION WIDTH 14.2 % (9.4-14.8)
[2019-09-24 05:07] LABS: ANION GAP 7 mmol/L (5-15); CALCIUM 8.2 mg/dL (8.5-10.1); CHLORIDE 107 mmol/L (98-107)
[2019-09-24 05:11] LABS: CREATININE 1.13 mg/dL (0.7-1.3)
[2019-09-24 05:47] VITALS: BP 139/73
[2019-09-24] MEDS: METOPROLOL TARTRATE 25 MG TAB PO SCH ×2 (05:48→17:23)
[2019-09-24 07:26] VITALS: BP 136/78
[2019-09-24] MEDS ORDERED: POTASSIUM PHOSPHATE 44 MEQ in SODIUM CHLORIDE 0.9% 500 ML IV ONE (08:00)
[2019-09-24] MEDS: LISINOPRIL 20 MG TABLET PO SCH ×2 (08:44→21:53)
[2019-09-24] MEDS: PANTOPRAZOLE 40 MG IV IVPush SCH (08:44)
[2019-09-24 13:40] VITALS: BP 151/99
[2019-09-24] MEDS ORDERED: CHLORHEXIDINE 15 ML UDC ONE (15:21)
[2019-09-24] MEDS ORDERED: MIDAZOLAM 1 MG/ML, 2ML ONE (15:24)
[2019-09-24] MEDS ORDERED: PROPOFOL 10 MG/ML, 50ML ONE (15:38)
[2019-09-24] MEDS ORDERED: PROMETHAZINE 25 MG/ML, 1ML IV PRN (16:00)
[2019-09-24] MEDS ORDERED: MEPERIDINE/PF 25MG/0.5ML IVPush PRN (16:00)
[2019-09-24] MEDS ORDERED: OXYcodone 5 MG/5 ML ORAL.SOL UDC PO PRN (16:00)
[2019-09-24] MEDS ORDERED: ACETAMINOPHEN 325 MG TABLET PO PRN (16:00)
[2019-09-24] MEDS ORDERED: LABETALOL 5MG/ML, 20ML IV PRN (16:00)
[2019-09-24] MEDS ORDERED: hydrALAzine 20 MG/ML, 1ML IV PRN (16:00)
[2019-09-24] MEDS ORDERED: DIAZEPAM 5 MG/ML, 2ML IVPush PRN (16:00)
[2019-09-24] MEDS ORDERED: KETOROLAC 30 MG/1 ML IV PRN (16:00)
[2019-09-24] MEDS ORDERED: FENTANYL PF 100 MCG/2ML IV PRN (16:00)
[2019-09-24] MEDS ORDERED: ALBUTEROL SULFATE 2.5 MG/3 ML NPPB PRN (16:00)
[2019-09-24] MEDS ORDERED: HYDROmorphone 2 MG/ML, 1ML IVPush PRN (16:00)
[2019-09-24 16:32] VITALS: BP 156/95
[2019-09-24 18:05] VITALS: BP 130/87
[2019-09-25] MEDS: NS + 20MEQ KCL 1,000 ML IV SCH (01:34)
[2019-09-25 01:39] VITALS: BP 161/98
[2019-09-25] MEDS ORDERED: METO25TA35 PO (08:09)
[2019-09-25] MEDS ORDERED: OMEP20TA62 PO (08:09)
[2019-09-25] MEDS ORDERED: LISI-170 PO (08:09)
[2019-09-25 08:35] VITALS: BP 155/115
[2019-09-25] MEDS: PANTOPRAZOLE 40 MG IV IVPush SCH (08:52)
[2019-09-25] MEDS: METOPROLOL TARTRATE 25 MG TAB PO SCH (08:53)
[2019-09-25] MEDS: LISINOPRIL 20 MG TABLET PO SCH (08:53)
== END 2019-09-25 09:46 | disposition home or self-care (01) | DRG 392 ==
LOC: ED 07:00 → EDIP 09:01 → 5SO 10:22 → DCLOUNGE 09-25 09:41
PROVIDERS: ADMIT Internal Medicine; ATTEND Hospitalist
PROC: 0DB68ZX Excision of Stomach, Via Natural or Artificial Opening Endoscopic, Diagnostic (ICD-10-PCS; 2019-09-24)
PROC: 0DB58ZX Excision of Esophagus, Via Natural or Artificial Opening Endoscopic, Diagnostic (ICD-10-PCS; 2019-09-24)
PROC: 0DB98ZX Excision of Duodenum, Via Natural or Artificial Opening Endoscopic, Diagnostic (ICD-10-PCS; principal; 2019-09-24 15:30)
DX: K29.00 Acute gastritis without bleeding (principal); E87.2 Acidosis; F32.9 Major depressive disorder, single episode, unspecified; F41.9 Anxiety disorder, unspecified; I16.0 Hypertensive urgency; E66.9 Obesity, unspecified; F12.90 Cannabis use, unspecified, uncomplicated; E87.6 Hypokalemia; E83.39 Other disorders of phosphorus metabolism; Z88.5 Allergy status to narcotic agent
CPT/HCPCS: 36415; 74021; 96361; 96372; 96374; 99291; J3490; 70450; 71275; 74175; 80048; 80053; 80307; 81003; 83735; 83880; 84100; 84443; 84484; 85025; 87635; 88305; 93005; 93306; 93356; G0378; J1885; J2250; J2550; J2704; J3480; Q9967; C9113; J0360; J1630; J2060; J2270; J7030; J7040

== ENCOUNTER 2020-08-10 13:34 | Emergency (ER) | payer OTHER ==
[~2020-08-10] VITALS: Ht 190.5 cm; Wt 101.0 kg
[~2020-08-10 13:34] MED LIST changes: +LISI-170 PO; +METO25TA35 PO; +OMEP20TA62 PO
--- NOTE | 2020-08-10 13:59 | NUR ---
TASK RN: ERPA AT BEDSIDE FOR EVALUATION.
--- NOTE | 2020-08-10 14:00 | NUR ---
TASK RN: PATIENT WALKED BACK FROM TRIAGE WITH CHIEF C/O N/V/D FOR THE LAST 13 HOURS. DENIES RESP SYMPTOMS, NO SICK CONTACTS. PATIENT REPORTS SMOKING MARIJUANA 13 HOURS AGO BEFORE WHICH HE HASN'T SMOKED IN A FEW DAYS. STATES HE HAS A HISTORY OF HYPEREMESIS RELATED TO MARIJUANA SMOKING. DANDRE, PATIENT HTN AT 191/130, ERPA AWARE, CALL LIGHT WITHIN REACH.
--- NOTE | 2020-08-10 14:09 | NUR ---
TASK RN: 20 GAUGE IV STARTED RIGHT AC, BLOOD COLLECTED AND LABELLED AT BEDSIDE.
[2020-08-10] MEDS ORDERED: ONDANSETRON 2MG/ML, 2ML ONE (14:11)
[2020-08-10] MEDS ORDERED: FAMOTIDINE 20 MG/2 ML ONE (14:11)
[2020-08-10] MEDS ORDERED: MAALOX/HYOSCYAMINE/LIDOCAINE 45 ML BTL ONE (14:11)
--- NOTE | 2020-08-10 14:14 | NUR ---
PATIENT MEDICATED PER eMAR, URINE COLLECTED AND SENT TO LAB.
[2020-08-10] MEDS ORDERED: ONDANSETRON 2MG/ML, 2ML IVPush ONE (14:30)
[2020-08-10] MEDS ORDERED: FAMOTIDINE 20 MG/2 ML IVPush ONE (14:30)
[2020-08-10] MEDS ORDERED: SODIUM CHLORIDE 0.9% 1,000ML IVBOLUS ONE (14:30)
[2020-08-10] MEDS ORDERED: MAALOX/HYOSCYAMINE/LIDOCAINE 45 ML BTL PO ONE (14:30)
[2020-08-10] MEDS ORDERED: SODIUM CHLORIDE FLUSH 10ML SYR IVF ONE (14:30)
[2020-08-10 14:31] LABS: MICROSCOPIC AUTO
[2020-08-10 14:47] LABS: BASOPHILS % (AUTO) 0 % (0-1); EOSINOPHILS % (AUTO) 0 % (1-7); LYMPHOCYTES % (AUTO) 9 % (22-44); MEAN CORPUSCULAR HEMOGLOBIN 31.7 pg (27.5-34.5); MEAN CORPUSCULAR HGB CONC 34.7 g/dL (33.2-36.2); MEAN PLATELET VOLUME 8.7 fL (7.4-10.4); MONOCYTES % (AUTO) 5 % (2-9); NEUTROPHILS % (AUTO) 86 % (42-75); PLATELET COUNT 164 x10^3/uL (130-400); RED BLOOD COUNT 5.29 x10^6/uL (4.38-5.82); RED CELL DISTRIBUTION WIDTH 13.2 % (9.4-14.8)
[2020-08-10 14:53] LABS: ALANINE AMINOTRANSFERASE 54 U/L (12-78); ALBUMIN 4.6 g/dL (3.4-5.0); ANION GAP 13 mmol/L (5-15); CALCIUM 9.5 mg/dL (8.5-10.1); CHLORIDE 108 mmol/L (98-107); CREATININE 1.26 mg/dL (0.7-1.3)
[2020-08-10 14:56] LABS: ALKALINE PHOSPHATASE 43 U/L (45-117); BILIRUBIN,TOTAL 0.7 mg/dL (0.2-1.0); TOTAL PROTEIN 7.9 g/dL (6.4-8.2)
[2020-08-10 15:11] LABS: AMPHETAMINE SCREEN, URINE Negative (Negative); BARBITURATE SCREEN, URINE Negative (Negative); BENZODIAZEPINE SCREEN, URINE Negative (Negative); CANNABINOID SCREEN, URINE Positive (Negative); COCAINE SCREEN, URINE Negative (Negative); METHADONE SCREEN, URINE Negative (Negative); OPIATE SCREEN, URINE Negative (Negative)
[2020-08-10 15:13] LABS: MD NO
[2020-08-10] MEDS ORDERED: HALOPERIDOL 5 MG/ML ONE (15:30)
--- NOTE | 2020-08-10 15:37 | NUR ---
dr. santos to bedside. pt medicated per emar. pt states he threw up all of his gi cocktail. when asked where he threw up pt states he swallowed it. pt asking for nausea and pain medication. vss.
[2020-08-10] MEDS ORDERED: HALOPERIDOL 5 MG/ML IV ONE (16:00)
[2020-08-10] MEDS ORDERED: DIPHENHYDRAMINE 50 MG/ML, 1ML IVPush ONE (17:00)
[2020-08-10] MEDS ORDERED: MORPHINE SULFATE 4 MG/ML, 1ML IVPush ONE (17:00)
[2020-08-10 18:18] VITALS: BP 177/105
== END 2020-08-10 18:21 | disposition home or self-care (01) ==
LOC: ED 14:21
DX: R11.2 Nausea with vomiting, unspecified (principal); R10.84 Generalized abdominal pain; R19.7 Diarrhea, unspecified; I10 Essential (primary) hypertension; R73.9 Hyperglycemia, unspecified
CPT/HCPCS: 36415; 80053; 80307; 81001; 83690; 85025; 96361; 96374; 96375; 99284; J1200; J1630; J2270; J2405; J7030

== ENCOUNTER 2020-11-09 18:45 | Emergency (ER) | payer OTHER ==
[~2020-11-09] VITALS: Ht 190.5 cm; Wt 98.0 kg
--- NOTE | 2020-11-09 18:53 | NUR ---
EKG IN TRIAGE
[2020-11-09] MEDS ORDERED: SODIUM CHLORIDE 0.9% 1,000ML IVBOLUS ONE (19:00)
[2020-11-09 19:14] LABS: BASOPHILS % (AUTO) 1 % (0-1); EOSINOPHILS % (AUTO) 0 % (1-7); LYMPHOCYTES % (AUTO) 8 % (22-44); MEAN CORPUSCULAR HEMOGLOBIN 31.1 pg (27.5-34.5); MEAN CORPUSCULAR HGB CONC 34.2 g/dL (33.2-36.2); MEAN PLATELET VOLUME 8.1 fL (7.4-10.4); MONOCYTES % (AUTO) 4 % (2-9); NEUTROPHILS % (AUTO) 88 % (42-75); PLATELET COUNT 189 x10^3/uL (130-400); RED BLOOD COUNT 5.38 x10^6/uL (4.38-5.82); RED CELL DISTRIBUTION WIDTH 13.2 % (9.4-14.8)
[2020-11-09 19:28] LABS: ALANINE AMINOTRANSFERASE 43 U/L (12-78); ALBUMIN 4.7 g/dL (3.4-5.0); ANION GAP 12 mmol/L (5-15); CALCIUM 9.7 mg/dL (8.5-10.1); CHLORIDE 105 mmol/L (98-107); CREATININE 1.12 mg/dL (0.7-1.3)
[2020-11-09 19:32] LABS: ALKALINE PHOSPHATASE 48 U/L (45-117); BILIRUBIN,TOTAL 0.7 mg/dL (0.2-1.0); TOTAL PROTEIN 8.5 g/dL (6.4-8.2); TROPONIN I < 0.015 ng/mL (0.000-0.045)
--- NOTE | 2020-11-09 20:37 | NUR ---
DANCER OR CHOREOGRAPHER: PT. TO ROOM FROM LOBBY AT THIS TIME.
[2020-11-09] MEDS ORDERED: LORazepam 2 MG/ML, 1ML ONE (21:11)
--- NOTE | 2020-11-09 21:15 | NUR ---
ASSUMED CARE OF PATIENT. PATIENT REPORTS N/V SINCE X4 AM. PT IS ANXIOUS, PT REPORTS HE HAS A HISTORY OF ANXIETY. VS STABLE. CALL LIGHT IN PLACE. WILL CONTINUE TO MONITOR.
[2020-11-09] MEDS ORDERED: ONDANSETRON 2MG/ML, 2ML ONE (21:18)
[2020-11-09] MEDS ORDERED: MAALOX/HYOSCYAMINE/LIDOCAINE 45 ML BTL ONE (21:18)
[2020-11-09] MEDS ORDERED: FAMOTIDINE 20 MG/2 ML ONE (21:19)
--- NOTE | 2020-11-09 21:23 | NUR ---
SOULEYMANE REDD HAS UPDATED PATIENT
[2020-11-09] MEDS ORDERED: LORazepam 2 MG/ML, 1ML IVPush ONE (21:30)
[2020-11-09] MEDS ORDERED: KETOROLAC 30 MG/1 ML IVPush ONE (21:30)
[2020-11-09] MEDS ORDERED: MAALOX/HYOSCYAMINE/LIDOCAINE 45 ML BTL PO ONE (21:30)
[2020-11-09] MEDS ORDERED: ONDANSETRON 2MG/ML, 2ML IVPush ONE (21:30)
[2020-11-09] MEDS ORDERED: FAMOTIDINE 20 MG/2 ML IVPush ONE (21:30)
[2020-11-09] MEDS ORDERED: KETOROLAC 30 MG/1 ML ONE (22:00)
--- NOTE | 2020-11-09 22:05 | NUR ---
PT REPORTS HE HAS BEEN OFF OF HIS BLOOD PRESSURE MEDICATION X1 MONTH BUT HAS AN APPOINTMENT ON THE 3RD TO SEE HIS DOCTOR FOR MEDS.
[2020-11-09] MEDS ORDERED: ENALAPRILAT 1.25 MG/ML, 1ML ONE (22:16)
[2020-11-09 22:30] VITALS: BP 186/108
[2020-11-09] MEDS ORDERED: ENALAPRILAT 1.25 MG/ML, 2ML IV ONE (22:30)
--- NOTE | 2020-11-09 22:39 | NUR ---
DR SOLANO AWARE OF VS, PT OKAYED TO BE DC'D. PT GIVEN A PRESCRIPTION FOR HOME BP MEDICATION UNTIL HE CAN GET INTO HIS DOCTOR ON THE 3RD. PT HAS A RIDE HOME FROM A FRIEND. PT READY FOR DC.
== END 2020-11-09 23:01 | disposition home or self-care (01) ==
LOC: ED 21:13
DX: K29.00 Acute gastritis without bleeding (principal); I10 Essential (primary) hypertension; R11.2 Nausea with vomiting, unspecified; R10.10 Upper abdominal pain, unspecified; R00.0 Tachycardia, unspecified
CPT/HCPCS: 36415; 71045; 80053; 83690; 84484; 85025; 93005; 96361; 96374; 96375; 99285; J1885; J2060; J2405; J7030